=== PATIENT | male | born 1965 | race Caucasian/White ===

== ENCOUNTER 2017-11-22 11:09 | Emergency (ER) | payer OTHER ==
[~2017-11-22] VITALS: Ht 162.6 cm; Wt 63.5 kg
[2017-11-22 13:45] VITALS: BP 195/99
--- NOTE | 2017-11-22 15:05 | RADIOLOGY REPORT ---
EXAMINATION: XR HAND, RIGHT CLINICAL INFORMATION: Cut right hand at work. Laceration. Question foreign body in first digit. COMPARISON: None TECHNIQUE: PA, lateral, and oblique views of the right hand. FINDINGS: There are multiple linear radiopaque foreign bodies which may be related to prior surgery along the palmar aspect of the hand overlying the carpal bones and distal radius. No acute osseous abnormality is seen. There are moderate degenerative changes in the DIP joint of the second digit. No fracture or dislocation seen. IMPRESSION: Multiple metallic linear radiopaque foreign bodies overlying the midline pulmonary aspect of the hand from the distal radius to the carpal bones. Query for history of prior surgery. No metallic foreign body seen in the soft tissues of the first digit.
--- NOTE | 2017-11-22 16:36 | ED HAND/WRIST INJURY COMPLAINT ---
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 UNSURE OF TETANUS. Triage Nurses Notes Reviewed? yes Occurred: just prior to arrival Duration: hour(s):, constant Timing: single episode today Injury Environment: home Severity: moderate Method of Injury: laceration No Modifying Factors: none HPI: 52-year-old male comes into the emergency room for further evaluation of laceration to right hand. Patient reports he cut it on a grinding saw at home. Sharp throbbing pain. Continuous. Tetanus shot up-to-date. Comes in for further evaluation. Previous surgery on right wrist. 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 (Keshav Caraballo) Past History Travel History Traveled to [place] past 21 day No Medical History Any Pertinent Medical History? see below for history Neurological: NONE Cardiovascular: hypertension Surgical History Surgical History: non-contributory Psychosocial History What is your primary language Citizen Of [place] Tobacco Use: Never used ETOH Use: occasional use Family History Hx Contributory? No (Keshav Caraballo) Review of Systems Review of Systems Constitutional: Reports: no symptoms. EENTM: Reports: no symptoms. Respiratory: Reports: no symptoms. Cardiovascular: Reports: no symptoms. GI: Reports: no symptoms. Genitourinary: Reports: no symptoms. Musculoskeletal: Reports: see HPI. Skin: Reports: see HPI. Neurological/Psychological: Reports: no symptoms. Hematologic/Endocrine: Reports: no symptoms. Immunologic/Allergic: Reports: no symptoms. All Other Systems: Reviewed and Negative (Keshav Caraballo) Physical Exam Physical Exam General Appearance: well developed/nourished, mild distress Head: atraumatic Eyes: Bilateral: normal appearance. Ears, Nose, Throat: normal ENT inspection, hearing grossly normal Neck: normal inspection Cardiovascular/Respiratory: no respiratory distress Back: normal inspection Hand Left: normal inspection Hand Right: 2 cm laceration base of right first finger, full range of motion of right thumb, strength intact, sensation intact, Neurologic/Tendon: normal sensation, normal motor functions, normal tendon functions, responds to pain, no evidence tendon injury, no pulse deficit Skin: intact, normal color, warm/dry Lymphatic: no anterior cervical shabana (Keshav Caraballo) Progress Differential Diagnosis: cellulitis, contusion, dislocation, fracture, septic arthritis, sprain Plan of Care: Patient tolerated procedure well. Performed by PA student. Diagnostic Imaging: Viewed by Me: Radiology Read. Discussed w/RAD: Radiology Read. Radiology Impression: PATIENT: TE MCKEON PRESENT AGE: 52 PATIENT ACCOUNT NO: [id number] : 63 LOCATION: [facility] ORDERING PHYSICIAN: Derrick Camacho DO (TBS) SERVICE DATE: 11/22/17 EXAM TYPE: RAD - XRY-HAND, RIGHT EXAMINATION: XR HAND, RIGHT CLINICAL INFORMATION: Cut right hand at work. Laceration. Question foreign body in first digit. COMPARISON: None TECHNIQUE: PA, lateral, and oblique views of the right hand. FINDINGS: There are multiple linear radiopaque foreign bodies which may be related to prior surgery along the palmar aspect of the hand overlying the carpal bones and distal radius. No acute osseous abnormality is seen. There are moderate degenerative changes in the DIP joint of the second digit. No fracture or dislocation seen. IMPRESSION: Multiple metallic linear radiopaque foreign bodies overlying the midline pulmonary aspect of the hand from the distal radius to the carpal bones. Query for history of prior surgery. No metallic foreign body seen in the soft tissues of the first digit. DICTATED BY: Micheal Rehman MD DATE/TIME DICTATED: 11/22/171458 STAFF AIR TACTICAL OFFICER:LILIA DATE/TIME TRANSCRIBED:11/22/171458 CONFIDENTIAL, DO NOT COPY WITHOUT APPROPRIATE AUTHORIZATION. <Electronically signed in Other Vendor System> SIGNED BY: Micheal Rehman MD 11/22/17 [id number] (Keshav Caraballo) Departure Departure Disposition: HOME OR SELF CARE Condition: Stable Clinical Impression Primary Impression: Laceration of right hand Referrals: Severo CUEVAS,Aamir Hyde (PCP/Family) Additional Instructions: Return in 7-10 days. Suture removal. Keep covered with bacitracin and dry sterile dressing. Watch for signs of infection such as redness or discharge fever chills. Please go over all results of today's visit with your primary care doctor. Contact your primary care doctor to let them know you were here in the emergency room. There may be nonspecific findings which may not be related to your visit today here in the emergency room but may require further evaluation and chronic monitoring by your primary care doctor. If you had a laceration today the chance of foreign body always remains. You should follow-up with your primary care doctor for recheck in 3-5 days for a wound check. If you had an x-ray done there is a chance that a fracture could have been missed on initial read and you should follow-up with your primary care doctor for repeat x-rays if symptoms persist. If your blood pressure was elevated here in the emergency room please have rechecked by [facility] primary care doctor within the next 48. If you were prescribed a narcotic here in the emergency room or any type of controlled substances you're not allowed to drive while taking this medication or operate any type of heavy machinery. Narcotics can make you feel lightheaded dizziness nausea and can cause constipation. 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 Thank you for choosing [facility] emergency room. Please return to the emergency room immediately if you have any other concerns worsening of symptoms. Departure Forms: Customer Survey General Discharge Information (Keshav Caraballo) PA/E COMMERCE MANAGER Co-Sign Statement Statement: ED Attending supervision documentation- [] I saw and evaluated the patient. I have also reviewed all the pertinent lab results and diagnostic results. I agree with the findings and the plan of care as documented in the PA's/E COMMERCE MANAGER's documentation. [x] I have reviewed the ED Record and agree with the PA's/E COMMERCE MANAGER's documentation. [] Additions or exceptions (if any) to the PAs/E COMMERCE MANAGER's note and plan are summarized below: [] (Doug MENDOZA,Derrick Arredondo) Procedures Laceration/Wound Repair Progress: Exam he laceration right hand, 1% lidocaine, 3 mL injected, irrigated with copious amounts of saline, 5. 0 nylon, 5 sutures placed, bacitracin, dry sterile dressing, sterile technique, performed by PA student with my supervision, (Matt TORRES,Keshav)
== END 2017-11-22 16:50 ==
LOC: ERH 11:09
DX: S61.411A Laceration without foreign body of right hand, initial encounter (principal); W26.8XXA Contact with other sharp object(s), not elsewhere classified, initial encounter; Y92.89 Other specified places as the place of occurrence of the external cause; Y93.89 Activity, other specified; I10 Essential (primary) hypertension
CPT/HCPCS: 73130-RT